=== PATIENT | female | born 1950 | race American Indian/Alaskan Native ===

== ENCOUNTER 2020-03-29 11:23 | Emergency (ER) | payer BC, MEDICARE ==
[2020-03-29] MEDS ORDERED: Acetaminophen 500 MG Tab PO ONE (11:30)
--- NOTE | 2020-03-29 11:34 | EDM.PDOC ---
ED HPI GENERAL MEDICAL PROBLEM - General Stated Complaint: FELL HIT HEAD Time Seen by Provider: 03/29/20 11:24 Source of Information: Reports: Patient History Limitations: Reports: No Limitations - History of Present Illness INITIAL COMMENTS - FREE TEXT/NARRATIVE: 69F presents for CHI and knee injury. No AC use. Patient was walking outside [facility] when her "knee gave out" causing her to fall. She fell backwards hitting back of head and RLE. No LOC. Has not ambulated without assistance. She was able to bear weight when moving to hospital stretcher. She denies HOGUE or head pain. Notes pain distal to her R knee worse with bending and bearing weight. Right Leg Pain Score (Numeric/FACES): 5 - Related Data Allergies Allergy/AdvReac Type Severity Reaction Status Date / Time honey Allergy Cannot Verified 03/29/20 11:34 Remember Home Meds: Home Meds Aspirin [Halfprin] 81 mg PO DAILY 03/29/20 [History] Diltiazem HCl [Diltiazem 24Hr Cd] 180 mg PO DAILY 03/29/20 [History] Insulin Aspart [Insulin Aspart Flexpen] 10 unit SQ TIDAC 03/29/20 [History] Insulin Detemir [Levemir] 33 unit SUBCUT DAILY 03/29/20 [History] Losartan [Cozaar] 100 mg PO DAILY 03/29/20 [History] Pioglitazone [Actos] 15 mg PO DAILY 03/29/20 [History] atorvaSTATin [Lipitor] 10 mg PO BEDTIME 03/29/20 [History] hydroCHLOROthiazide [Hydrochlorothiazide] 25 mg PO DAILY 03/29/20 [History] metFORMIN [Glucophage] 1,000 mg PO BIDMEALS 03/29/20 [History] ED ROS GENERAL - Review of Systems Review Of Systems: Comprehensive ROS is negative, except as noted in HPI. ED EXAM, GENERAL - Physical Exam Exam: See Below Exam Limited By: No Limitations General Appearance: Alert, WD/WN, No Apparent Distress Eye Exam: Bilateral Eye: EOMI, PERRL Ears: Normal External Exam Nose: Normal Inspection Throat/Mouth: Normal Inspection, Normal Voice, No Airway Compromise Head: Normocephalic, Other (large hematoma R occipital scalp without laceration or bleeding) Neck: Normal Inspection, Other (no C-spine TTP) Respiratory/Chest: No Respiratory Distress, Lungs Clear, Normal Breath Sounds, No Accessory Muscle Use, Chest Non-Tender Cardiovascular: Normal Peripheral Pulses, Regular Rate, Rhythm GI/Abdominal: Soft, Non-Tender Back Exam: Normal Inspection, Other (no SP TTP entire spine ). No: Paraspinal Tenderness, Vertebral Tenderness Extremities: Other (no R knee joint line TTP, no overt effusion, no patellar TTP, large hematoma on proximal R leg distal to knee without overt deformity, no pelvic or hip TTP or instability, no axial loading TTP b/l legs ) Psychiatric: Normal Affect, Normal Mood Skin Exam: Warm, Dry, Intact Course - Vital Signs Last Recorded V/S: Last Vital Signs Temp 97.0 F 03/29/20 11:34 Pulse 98 03/29/20 13:00 Resp 14 03/29/20 13:00 BP 135/62 03/29/20 13:00 Pulse Ox 95 03/29/20 13:00 - Orders/Labs/Meds Orders: Active Orders 24 hr Category Date Time Status Splinting [RC] ASDIRECTED Care 03/29/20 14:43 Ordered Meds: Medications Discontinued Medications Generic Name Dose Route Start Last Admin Trade Name Eduinq PRN Reason Stop Dose Admin Acetaminophen 1,000 mg 03/29/20 11:30 03/29/20 11:34 Tylenol Extra Strength PO 03/29/20 11:31 1,000 mg ONETIME ONE Administration - Re-Assessments/Exams Free Text/Narrative Re-Assessment/Exam: 03/29/20 11:[address] to r/o emergent intracranial pathology, will get XR imaging or R knee/leg, will give tylenol for analgesia. 03/29/20 13:28 XR imaging remarkable for lucency concerning for proximal tibia fx. This is right in the area of patient's maximal pain and right under a large hematoma. Will get CT to eval for fracture vs hematoma. 03/29/20 14:43 CT imaging does reveal proximal tibia fracture w/ fibular neck fracture. Will apply long leg posterior splint and d/c with orthopedic f/u Departure - Departure Time of Disposition: 14:44 Disposition: Home, Self-Care 01 Condition: Good Clinical Impression: Tibia fracture Qualifiers: Encounter type: initial encounter Tibia location: proximal Fracture type: closed Fracture morphology: unspecified fracture morphology Laterality: right Qualified Code(s): S82.101A - Unspecified fracture of upper end of right tibia, initial encounter for closed fracture Fracture of neck of fibula Qualifiers: Encounter type: initial encounter Fracture type: closed Laterality: right Qualified Code(s): S82.831A - Other fracture of upper and lower end of right fibula, initial encounter for closed fracture - Discharge Information Instructions: Tibial Fracture, Adult Referrals: Owen Meade MD [Primary Care Provider] - Additional Instructions: The following information is given to patients seen in the emergency department who are being discharged to home. This information is to outline your options for follow-up care. We provide all patients seen in our emergency department with a follow-up referral. The need for follow-up, as well as the timing and circumstances, are variable depending upon the specifics of your emergency department visit. If you don't have a primary care physician on staff, we will provide you with a referral. We always advise you to contact your personal physician following an emergency department visit to inform them of the circumstance of the visit and for follow-up with them and/or the need for any referrals to a consulting specialist. The emergency department will also refer you to a specialist when appropriate. This referral assures that you have the opportunity for follow-up care with a specialist. All of these measure are taken in an effort to provide you with optimal care, which includes your follow-up. Under all circumstances we always encourage you to contact your private physician who remains a resource for coordinating your care. When calling for follow-up care, please make the office aware that this follow-up is from your recent emergency room visit. If for any reason you are refused follow-up, please contact the [facility] Emergency Department at and asked to speak to the emergency department charge nurse. Please follow up with an orthopedic physician early next week: [facility] [address] [place] [address], [address] [place] [address] Sepsis Event Note (ED) - Focused Exam Vital Signs: Vital Signs Temp Pulse Resp BP Pulse Ox 03/29/20 13:00 98 14 135/62 95 03/29/20 11:34 97.0 F 104 H 16 146/68 H 98 - My Orders Last 24 Hours: My Active Orders 03/29/20 14:43 Splinting [RC] ASDIRECTED - Assessment/Plan Last 24 Hours: My Active Orders 03/29/20 14:43 Splinting [RC] ASDIRECTED
--- NOTE | 2020-03-29 13:14 | CR ---
Indication: Fall Technique: Three views right knee Comparison: None Findings: Bones: Cortical irregularity through the proximal tibia. Joint spaces: Severe medial and moderate lateral and patellofemoral degenerative changes. There is chondrocalcinosis. Soft tissues: There are vascular calcifications. Impression: Cortical irregularity through the proximal tibia highly concerning for nondisplaced fracture. Consider CT for further evaluation.. Tricompartmental degenerative changes. Dictated by Inez Acevedo MD @ Mar 29 2020 1:13PM Signed by Dr. Inez Acevedo @ Mar 29 2020 1:13PM
--- NOTE | 2020-03-29 13:16 | CR ---
Indication: Fall with leg pain Technique: Frontal and lateral views right tibia and fibula Comparison: None Findings: Bones: There is a transverse region of irregular sclerosis and lucency in proximal tibia. There is also some cortical irregularity at this level. Small inferior calcaneal enthesophyte. Joint spaces: Severe lateral and moderate medial degenerative joint changes. Chondrocalcinosis. Soft tissues: Diffuse calcifications.. Impression: Findings concerning for nondisplaced proximal tibia fracture. Recommend CT for further evaluation. Dictated by Inez Acevedo MD @ Mar 29 2020 1:13PM Signed by Dr. Inez Acevedo @ Mar 29 2020 1:16PM
--- NOTE | 2020-03-29 13:41 | CT ---
INDICATION: Trauma. Fall. The patient hit the back of her head. TECHNIQUE: Noncontrast head CT. COMPARISON: None. FINDINGS: No intracranial hemorrhage or hydrocephalus. No mass effect or shift of midline structures. Minimal basal ganglia calcification. No calvarial or skullbase fracture. The visualized included paranasal sinuses and mastoid air cells are clear. 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 The temporomandibular joints appear to be symmetric and intact accounting for the asymmetric placement of the patient. There is a soft tissue hematoma overlying the right posterior superior occiput compatible with a hematoma. IMPRESSION: 1. No acute intracranial process identified. 2. No calvarial or skullbase fracture. 3. Posterior superior right-sided soft tissue hematoma. Please note that all CT scans at this facility use dose modulation, iterative reconstruction, and/or weight-based dosing when appropriate to reduce radiation dose to as low as reasonably achievable. Dictated by Alex Woodard MD @ Mar 29 2020 1:38PM Signed by Dr. Alex Woodard @ Mar 29 2020 1:41PM
--- NOTE | 2020-03-29 14:34 | CT ---
TECHNIQUE: Right lower extremity CT without intravenous contrast, extending from the level of the distal thigh through the ankle. INDICATION: Trauma. COMPARISON: Same date right knee and tibia/fibula radiographs. FINDINGS: Osseous: Diffusely decreased osseous mineralization. Proximal tibial metaphysis minimally displaced transverse/oblique fracture, involving the tibial tubercle anteriorly (series 2 of 4, image 46). Fibular neck minimally displaced oblique fracture. Medial and lateral tibial plateau articular surfaces without evidence of fracture extension. The imaged distal femur and patella appear intact. - Joints: Right knee advanced tricompartmental degenerative changes, predominating in the lateral compartment where there is extensive [id number] apposition, articular remodeling, and reactive subchondral marrow changes. Moderate-large volume right knee joint fluid with multiple mineralized intra-articular bodies, including an irregular ossific density in the suprapatellar recess measuring approximately 4.1 x 3.4 x 1.6 cm. Extensive meniscal chondrocalcinosis. Imaged portions of the right ankle demonstrate extensive tibiotalar chondrocalcinosis without advanced arthrosis. - Soft tissues: Extensive circumferential subcutaneous edema extending from the knee inferiorly throughout the remaining imaged lower leg. No soft tissue gas or organized collection. Atrophy and fatty infiltration of the lower leg musculature, namely the superficial posterior and lateral compartments. Severe atherosclerotic calcification diffusely. Achilles tendon is markedly thickened with stippled intrasubstance calcifications. Knee extensor mechanism is notable for mild comminution of the tibial tubercle in close proximity to the patellar tendon attachment. IMPRESSION: 1. Right proximal tibial metaphysis minimally displaced transverse/oblique fracture involving the tibial tubercle, at risk for patellar tendon insufficiency. 2. Right fibular neck minimally displaced oblique fracture. 3. Marked circumferential subcutaneous edema throughout the right lower leg, possibly due to volume overload though cellulitis may appear similar in the appropriate clinical context. No soft tissue gas or organized/drainable collection. 4. Advanced tricompartmental right knee arthrosis, most pronounced in the lateral compartment. Moderate-large right knee joint effusion with bulky mineralized intra-articular bodies. 5. Marked Achilles calcific tendinosis. Please note that all CT scans at this facility use dose modulation, iterative reconstruction, and/or weight-based dosing when appropriate to reduce radiation dose to as low as reasonably achievable. Dictated by Fernando Acevedo MD @ Mar 29 2020 2:11PM Signed by Dr. Fernando Acevedo @ Mar 29 2020 2:32PM
== END 2020-03-29 15:22 | disposition home or self-care (01) ==
LOC: MW.ED 11:23
DX: S82.101A Unspecified fracture of upper end of right tibia, initial encounter for closed fracture (principal); S82.831A Other fracture of upper and lower end of right fibula, initial encounter for closed fracture; S00.03XA Contusion of scalp, initial encounter; Z91.018 Allergy to other foods; W18.30XA Fall on same level, unspecified, initial encounter; Y93.01 Activity, walking, marching and hiking; Y92.89 Other specified places as the place of occurrence of the external cause
CPT/HCPCS: 29505; 70450; 73562; 73590; 73700; 99284; A9270; 99282

== ENCOUNTER 2020-04-13 16:08 | Emergency (ER) | payer BC, MEDICARE, OTHER ==
[2020-04-13] MEDS ORDERED: Sodium Chloride 0.9% 2.5 ML Syringe FLUSH PRN (16:14)
[2020-04-13] MEDS ORDERED: Sodium Chloride 0.9% 10 ML Syringe FLUSH PRN (16:14)
--- NOTE | 2020-04-13 16:34 | EDM.PDOC ---
ED HPI GENERAL MEDICAL PROBLEM - General Chief Complaint: Diabetic Complaint Stated Complaint: DIZZNESS Time Seen by Provider: 04/13/20 16:13 - History of Present Illness INITIAL COMMENTS - FREE TEXT/NARRATIVE: History of present illness: Patient states she has been feeling weak at home she denies any cough or shortness of breath no chest pain no headache the patient's blood sugar was noted to be greater than 500 by EMS. She recently had a tibia fracture and is in a cast. She denies any chest pain or shortness of breath she is not having any leg pain at this time the patient denies any congestion or runny nose no dysuria she just complains of generalized weakness. Nothing makes it better or worse Review of systems: As per history of present illness and below otherwise all systems reviewed and negative. Past medical history: As per history of present illness and as reviewed below otherwise noncontributory. Surgical history: As per history of present illness and as reviewed below otherwise noncontributory. Social history: No reported history of drug or alcohol abuse. Family history: As per history of present illness and as reviewed below otherwise noncontributory. Physical exam: HEENT: Atraumatic, normocephalic, pupils reactive, negative for conjunctival pallor or scleral icterus, mucous membranes moist, throat clear, neck supple, nontender, trachea midline. Lungs: Clear to auscultation, breath sounds equal bilaterally, chest nontender. Heart: S1S2, regular, negative for clicks, rubs, or JVD. Abdomen: Soft, nondistended, nontender. Negative for masses or hepatosplenomegaly. Negative for costovertebral tenderness. Pelvis: Stable nontender. Genitourinary: Deferred. Rectal: Deferred. Extremities: Atraumatic, negative for cords or calf pain. Neurovascular unremarkable. Neuro: Awake, alert, oriented. Cranial nerves II through XII unremarkable. Cerebellum unremarkable. Motor and sensory unremarkable throughout. Exam nonfocal. Diagnostics: [] Therapeutics: [] Impression: Generalized weakness [] Plan: Patient will have basic labs urine chest x-ray completed as well as a Covid swab and reassessed [] Definitive disposition and diagnosis as appropriate pending reevaluation and review of above. - Related Data Allergies Allergy/AdvReac Type Severity Reaction Status Date / Time honey Allergy Cannot Verified 03/29/20 11:34 Remember Home Meds: Home Meds Aspirin [Halfprin] 81 mg PO DAILY 03/29/20 [History] Diltiazem HCl [Diltiazem 24Hr Cd] 180 mg PO DAILY 03/29/20 [History] Insulin Aspart [Insulin Aspart Flexpen] 10 unit SQ TIDAC 03/29/20 [History] Insulin Detemir [Levemir] 33 unit SUBCUT DAILY 03/29/20 [History] Losartan [Cozaar] 100 mg PO DAILY 03/29/20 [History] Pioglitazone [Actos] 15 mg PO DAILY 03/29/20 [History] atorvaSTATin [Lipitor] 10 mg PO BEDTIME 03/29/20 [History] hydroCHLOROthiazide [Hydrochlorothiazide] 25 mg PO DAILY 03/29/20 [History] metFORMIN [Glucophage] 1,000 mg PO BIDMEALS 03/29/20 [History] Past Medical History - Past Health History Medical/Surgical History: Denies Medical/Surgical History Social & Family History - Family History Family Medical History: Noncontributory ED ROS GENERAL - Review of Systems Review Of Systems: See Below ED EXAM GENERAL NO PERIP PULSE - Physical Exam Exam: See Below #1 Interpretation EKG Interpretation Comments: EKG is normal sinus rhythm sinus tachycardia at [address]-T changes no shannan ischemia read and interpreted by me Course - Vital Signs Text/Narrative:: Critical care 45 minutes for acute pneumonia sepsis hypoxia and GI bleeding. This included initial assessment initiation of empiric antibiotics initiation of blood product initiation of Protonix discussion with consultants arrangements for transfer does not include separately billable procedures Rectal exam was performed to the low hemoglobin it was Hemoccult positive and revealed melanotic stool. Patient was Covid positive. At 6:30 PM I discussed the case with Dr. Mejias at [place] in the ED and they will accept the patient for transfer. Last Recorded V/S: Last Vital Signs Temp 36.0 C L 04/13/20 18:47 Pulse 109 H 04/13/20 18:47 Resp 18 04/13/20 18:47 BP 108/59 L 04/13/20 18:47 Pulse Ox 98 04/13/20 18:47 - Orders/Labs/Meds Orders: Active Orders 24 hr Category Date Time Status EKG 12 Lead [EKG Documentation Completion] [RC] STAT Care 04/13/20 16:16 Active B-TYPE NATRIURETIC PEPTIDE,BNP [CHEM] Stat Lab 04/13/20 17:28 Received CULTURE BLOOD [BC] Stat Lab 04/13/20 18:00 Results CULTURE BLOOD [BC] Stat Lab 04/13/20 18:10 Received TYPE AND SCREEN [BBK] Stat Lab 04/13/20 17:50 Received UA W/[place] RFLX IF INDICATED [URIN] Stat Lab 04/13/20 16:15 Ordered Sodium Chloride 0.9% [Normal Saline] 500 ml Med 04/13/20 18:00 Active IV .BOLUS Sodium Chloride 0.9% [Saline Flush] Med 04/13/20 16:14 Active 10 ml FLUSH ASDIRECTED PRN Sodium Chloride 0.9% [Saline Flush] Med 04/13/20 16:14 Active 2.5 ml FLUSH ASDIRECTED PRN Blood Culture x2 Reflex Set [OM.PC] Stat Ot 04/13/20 17:43 Ordered Saline Lock Insert [OM.PC] Stat Ot 04/13/20 16:15 Ordered Transfuse PRBC [Transfuse Red Blood Cells] [COMM] Stat Ot 04/13/20 18:11 Ordered Medication Orders Sodium Chloride (Normal Saline) 500 mls @ 999 mls/hr IV .BOLUS MICHEAL Sodium Chloride (Saline Flush) 10 ml FLUSH ASDIRECTED PRN PRN Reason: Keep Vein Open Last Admin: 04/13/20 18:37 Dose: 10 ml Documented by: CLOVER Sodium Chloride (Saline Flush) 2.5 ml FLUSH ASDIRECTED PRN PRN Reason: Keep Vein Open Last Admin: 04/13/20 18:37 Dose: 2.5 ml Documented by: CLOVER Labs: Laboratory Tests 04/13/20 04/13/20 04/13/20 Range/Units 16:21 16:32 16:45 WBC 17.53 H (4.0-11.0) K/uL RBC 2.69 L (4.30-5.90) M/uL Hgb 6.9 L (12.0-16.0) g/dL Hct 22.2 L (36.0-46.0) % MCV 82.5 (80.0-98.0) fL MCH 25.7 L (27.0-32.0) pg MCHC 31.1 (31.0-37.0) g/dL RDW Std Deviation 44.3 (28.0-62.0) fl RDW Coeff of Giorgi 16 H (11.0-15.0) % Plt Count 345 (150-400) K/uL MPV 11.00 (7.40-12.00) fL Add Manual Diff YES Neutrophils % (Manual) 94 H (48.0-80.0) % Lymphocytes % (Manual) 4 L (16.0-40.0) % Monocytes % (Manual) 2 (0.0-15.0) % Nucleated RBC % 1.6 /100WBC Absolute Seg Neuts 16.5 H (1.4-5.7) Lymphocytes # (Manual) 0.7 (0.6-2.4) Monocytes # (Manual) 0.4 (0.0-0.8) Nucleated RBCs # 0 K/uL ABG pH (7.35-7.45) ABG pCO2 (35-45) mmHG ABG pO2 (75-100) mmHG ABG HCO3 (22-26) mEq/L ABG Total CO2 ABG Base Excess (-2.0-2.0) Lactate (0.20-2.00) mmol/L Sodium (136-145) mmol/L Potassium (3.5-5.1) mmol/L Chloride (98-107) mmol/L Carbon Dioxide (21.0-32.0) mmol/L BUN (7.0-18.0) mg/dL Creatinine (0.6-1.0) mg/dL Est Cr Clr Drug Dosing mL/min Estimated GFR (MDRD) ml/min Glucose (74-106) mg/dL POC Glucose > 500 H (60-110) mg/dL Calcium (8.5-10.1) mg/dL Total Bilirubin (0.2-1.0) mg/dL AST (15-37) IU/L ALT (14-63) IU/L Alkaline Phosphatase (46-116) U/L Troponin I (0.000-0.056) ng/mL Total Protein (6.4-8.2) g/dL Albumin (3.4-5.0) g/dL Globulin (2.6-4.0) g/dL Albumin/Globulin Ratio (0.9-1.6) Lipase (73-393) U/L SARS-CoV-2 RNA (SHARLENE) POSITIVE H (NEGATIVE) 04/13/20 04/13/20 04/13/20 Range/Units 16:45 17:28 17:58 WBC (4.0-11.0) K/uL RBC (4.30-5.90) M/uL Hgb (12.0-16.0) g/dL Hct (36.0-46.0) % MCV (80.0-98.0) fL MCH (27.0-32.0) pg MCHC (31.0-37.0) g/dL RDW Std Deviation (28.0-62.0) fl RDW Coeff of Giorgi (11.0-15.0) % Plt Count (150-400) K/uL MPV (7.40-12.00) fL Add Manual Diff Neutrophils % (Manual) (48.0-80.0) % Lymphocytes % (Manual) (16.0-40.0) % Monocytes % (Manual) (0.0-15.0) % Nucleated RBC % /100WBC Absolute Seg Neuts (1.4-5.7) Lymphocytes # (Manual) (0.6-2.4) Monocytes # (Manual) (0.0-0.8) Nucleated RBCs # K/uL ABG pH 7.365 (7.35-7.45) ABG pCO2 28 L (35-45) mmHG ABG pO2 64 L (75-100) mmHG ABG HCO3 16 L (22-26) mEq/L ABG Total CO2 15.3 ABG Base Excess -8.6 L (-2.0-2.0) Lactate 9.9 H* (0.20-2.00) mmol/L Sodium 128 L (136-145) mmol/L Potassium 3.7 (3.5-5.1) mmol/L Chloride 92 L (98-107) mmol/L Carbon Dioxide 13.7 L (21.0-32.0) mmol/L BUN 125 H (7.0-18.0) mg/dL Creatinine 3.2 H (0.6-1.0) mg/dL Est Cr Clr Drug Dosing 11.92 mL/min Estimated GFR (MDRD) 14.4 ml/min Glucose 703 H* (74-106) mg/dL POC Glucose (60-110) mg/dL Calcium 7.3 L (8.5-10.1) mg/dL Total Bilirubin 0.6 (0.2-1.0) mg/dL AST 34 (15-37) IU/L ALT 18 (14-63) IU/L Alkaline Phosphatase 109 (46-116) U/L Troponin I < 0.050 (0.000-0.056) ng/mL Total Protein 6.5 (6.4-8.2) g/dL Albumin 2.4 L (3.4-5.0) g/dL Globulin 4.1 H (2.6-4.0) g/dL Albumin/Globulin Ratio 0.6 L (0.9-1.6) Lipase 507 H (73-393) U/L SARS-CoV-2 RNA (SHARLENE) (NEGATIVE) Meds: Medications Generic Name Dose Route Start Last Admin Trade Name Freq PRN Reason Stop Dose Admin Sodium Chloride 500 mls @ 999 mls/hr 04/13/20 18:00 Normal Saline IV .BOLUS MICHEAL Sodium Chloride 10 ml 04/13/20 16:14 04/13/20 18:37 Saline Flush FLUSH 10 ml ASDIRECTED PRN Administration Keep Vein Open Sodium Chloride 2.5 ml 04/13/20 16:14 04/13/20 18:37 Saline Flush FLUSH 2.5 ml ASDIRECTED PRN Administration Keep Vein Open Discontinued Medications Generic Name Dose Route Start Last Admin Trade Name Freq PRN Reason Stop Dose Admin Piperacillin Sod/Tazobactam 50 mls @ 100 mls/hr 04/13/20 17:44 04/13/20 18:37 Sod 3.375 gm/ Sodium Chloride IV 04/13/20 18:13 100 mls/hr ONETIME ONE Administration Sodium Chloride 1,000 mls @ 999 mls/hr 04/13/20 17:55 04/13/20 18:36 Normal Saline IV 04/13/20 18:55 999 mls/hr .Bolus ONE Administration Sodium Chloride 1,000 mls @ 999 mls/hr 04/13/20 17:57 Normal Saline IV 04/13/20 18:57 .Bolus ONE Pantoprazole Sodium 80 mg/ 20 mls @ 420 mls/hr 04/13/20 18:12 04/13/20 18:37 Sodium Chloride IVPUSH 10/16/20 18:14 420 mls/hr ONETIME ONE Administration Departure - Departure Time of Disposition: 18:30 Disposition: DC/Tfer to Acute Hospital 02 Condition: Serious, Critical Clinical Impression: Hyperglycemia, GI bleed, Pneumonia, COVID-19, Anemia, Sepsis - Discharge Information *PRESCRIPTION DRUG MONITORING PROGRAM REVIEWED*: Not Applicable *COPY OF PRESCRIPTION DRUG MONITORING REPORT IN PATIENT YORDAN: Not Applicable Referrals: Owen Meade MD [Primary Care Provider] - Forms: ED Department Discharge Sepsis Event Note (ED) - Evaluation Sepsis Screening Result: Possible Severe Sepsis Risk - Focused Exam Vital Signs: Vital Signs Temp Pulse Resp BP Pulse Ox 04/13/20 18:47 36.0 C L 109 H 18 108/59 L 98 04/13/20 18:20 56 L 104/45 L 92 L 04/13/20 18:19 115 H 117/49 L 89 L 04/13/20 18:17 113 H 117/43 L 92 L 04/13/20 17:21 111 H 18 117/49 L 92 L 04/13/20 16:25 35.9 C L 114 H 22 H 109/41 L 58 L 04/13/20 16:19 35.8 C L 114 H 20 109/41 L 86 L - My Orders Last 24 Hours: My Active Orders 04/13/20 16:14 Sodium Chloride 0.9% [Saline Flush] 10 ml FLUSH ASDIRECTED PRN Sodium Chloride 0.9% [Saline Flush] 2.5 ml FLUSH ASDIRECTED PRN 04/13/20 16:15 UA W/[place] RFLX IF INDICATED [URIN] Stat Saline Lock Insert [OM.PC] Stat 04/13/20 16:16 EKG 12 Lead [EKG Documentation Completion] [RC] STAT 04/13/20 17:28 B-TYPE NATRIURETIC PEPTIDE,BNP [CHEM] Stat 04/13/20 17:43 Blood Culture x2 Reflex Set [OM.PC] Stat 04/13/20 17:50 TYPE AND SCREEN [BBK] Stat 04/13/20 18:00 CULTURE BLOOD [BC] Stat Sodium Chloride 0.9% [Normal Saline] 500 ml IV .BOLUS 04/13/20 18:10 CULTURE BLOOD [BC] Stat 04/13/20 18:11 Transfuse PRBC [Transfuse Red Blood Cells] [COMM] Stat - Assessment/Plan Last 24 Hours: My Active Orders 04/13/20 16:14 Sodium Chloride 0.9% [Saline Flush] 10 ml FLUSH ASDIRECTED PRN Sodium Chloride 0.9% [Saline Flush] 2.5 ml FLUSH ASDIRECTED PRN 04/13/20 16:15 UA W/[place] RFLX IF INDICATED [URIN] Stat Saline Lock Insert [OM.PC] Stat 04/13/20 16:16 EKG 12 Lead [EKG Documentation Completion] [RC] STAT 04/13/20 17:28 B-TYPE NATRIURETIC PEPTIDE,BNP [CHEM] Stat 04/13/20 17:43 Blood Culture x2 Reflex Set [OM.PC] Stat 04/13/20 17:50 TYPE AND SCREEN [BBK] Stat 04/13/20 18:00 CULTURE BLOOD [BC] Stat Sodium Chloride 0.9% [Normal Saline] 500 ml IV .BOLUS 04/13/20 18:10 CULTURE BLOOD [BC] Stat 04/13/20 18:11 Transfuse PRBC [Transfuse Red Blood Cells] [COMM] Stat
--- NOTE | 2020-04-13 17:26 | CR ---
INDICATION: Cough. TECHNIQUE: Upright portable AP image of the chest. COMPARISON: None. FINDINGS: Shallow inspiration with crowded markings and diffuse airspace infiltrates. No obvious pleural effusion per but heart size and pulmonary vasculature difficult to assess given the shallow inspiration and infiltrates. No significant bony abnormality. IMPRESSION: Shallow inspiration with crowded markings in diffuse airspace infiltrates. Dictated by Jose Ramon Fraga MD @ Apr 13 2020 5:23PM Signed by Dr. Jose Ramon Fraga @ Apr 13 2020 5:25PM
[2020-04-13] MEDS ORDERED: Piperacillin/Tazobactam 3.375 GM in Sodium Chloride 0.9% 50 ML IV ONE (17:44)
[2020-04-13] MEDS ORDERED: Sodium Chloride 0.9% 1,000 ML IV ONE ×2 (17:55→17:57)
[2020-04-13] MEDS ORDERED: Sodium Chloride 0.9% 500 ML IV SCH (18:00)
[2020-04-13] MEDS ORDERED: Pantoprazole 80 MG in Sodium Chloride 0.9% 20 ML IVPUSH ONE (18:12)
[2020-04-13 18:27] LABS: BLOOD UREA NITROGEN,BUN 125 mg/dL (7.0-18.0); CARBON DIOXIDE,CO2 13.7 mmol/L (21.0-32.0); CHLORIDE,CL 92 mmol/L (98-107); LIPASE 507 U/L (73-393); POTASSIUM,K 3.7 mmol/L (3.5-5.1); SODIUM,NA 128 mmol/L (136-145)
[2020-04-13 18:29] LABS: GLUCOSE RANDOM 703 mg/dL (74-106)
== END 2020-04-13 19:10 ==
LOC: MW.ED 16:08
DX: A41.89 Other specified sepsis (principal); U07.1 COVID-19; J12.89 Other viral pneumonia; K92.2 Gastrointestinal hemorrhage, unspecified; R73.9 Hyperglycemia, unspecified; D64.9 Anemia, unspecified; Z91.018 Allergy to other foods; Z79.4 Long term (current) use of insulin; Z79.82 Long term (current) use of aspirin; Z79.899 Other long term (current) drug therapy
CPT/HCPCS: 36415; 36430; 36600; 71045; 80053; 82803; 82962; 83605; 83690; 84484; 85025; 86850; 86900; 86901; 86920; 86921; 86922; 87040; 87635; 93005; 96365; 96375; 99291; C9113; J2543; J7030; J7050; P9016; 83880; U0002